=== PATIENT | female | born 1960 | race Caucasian/White ===

== ENCOUNTER 2019-07-08 07:04 | Day surgery (SDC) | payer BC ==
[2019-07-07 15:12] VITALS: BMI 38.9
[2019-07-08] MEDS ORDERED: PROPOFOL 200 MG/20 ML VIAL ONE (10:32)
--- NOTE | 2019-07-08 11:03 | OP ---
DATE OF PROCEDURE: 07/08/2019 PREPROCEDURE DIAGNOSES: 1. 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 2. Personal history of gastric polyps, both fundic gland polyps and adenomas in the past. 3. Personal history of colon polyps. POSTPROCEDURE DIAGNOSES: 1. Normal-appearing ampulla with no evidence of recurrent polyps or stenosis by side-viewing scope. 2. Gastric polyps in the fundus of the stomach, removed by cold snare polypectomy and submitted to Pathology. 3. Two colon polyps, one in the ascending and one in the descending, both removed by cold snare polypectomy, both less than 5 mm in size and submitted to Pathology. RECOMMENDATIONS: 1. Await histopathology. 2. Repeat EGD in 2 years and colonoscopy in 2 to 3 years. PROCEDURE IN DETAIL: The patient was informed of the risks, benefits, and possible complications of endoscopy including perforation, reaction to medication, and aspiration, informed consent was obtained and the patient was brought into the endoscopy suite, where she was sedated in gradual standard fashion. A bite block was placed inside the orifice. The endoscope was advanced through the esophagus, stomach, and second and third portions of the duodenum. The esophagus was normal. The stomach was notable for some polyps in the proximal stomach and cardia consistent with fundic glandular polyps. Larger of these was removed by snare polypectomy. There was no atypical appearing polyps. There was good distention and the stomach was viewed in forward and retroflexed views. The antrum was normal. The duodenum of the second and third portions were normal. No polyps seen. The scope was removed. The side-viewing duodenoscope was then advanced through the bite block and the esophagus was intubated. The endoscope was advanced to the second portion of the duodenum, where the ampulla was brought into view. There was no evidence of residual adenoma or stricture stenosis. There was clear bile emanating from the ampulla. The scope was removed. The patient was turned to the room and rectal exam was performed. The endoscope was advanced through the anal canal through the colon. The cecum was identified by ileocecal valve and appendiceal orifice. The scope was then slowly removed. There was a diminutive polyp in ascending colon about 5 mm in size and one in the descending, about 3 mm in size. These were removed by cold snare polypectomy and submitted to Pathology. Retroflexed views were normal. The prep was very good. The scope was removed. The patient was brought to recovery room in stable condition. Job ID: [id number]
== END 2019-07-08 10:45 | disposition home or self-care (01) ==
LOC: SDC 07:04
PROVIDERS: ATTEND Internal Medicine Gastroenterology
DX: Z12.11 Encounter for screening for malignant neoplasm of colon (principal); D12.2 Benign neoplasm of ascending colon; K31.7 Polyp of stomach and duodenum; I10 Essential (primary) hypertension; E11.9 Type 2 diabetes mellitus without complications; I25.10 Atherosclerotic heart disease of native coronary artery without angina pectoris; E78.5 Hyperlipidemia, unspecified; F41.9 Anxiety disorder, unspecified; J45.909 Unspecified asthma, uncomplicated; Z86.010 Personal history of colon polyps; Z86.018 Personal history of other benign neoplasm; Z91.013 Allergy to seafood
CPT/HCPCS: 36416; 88305; 88312; J2704

== ENCOUNTER 2021-09-30 09:54 | Outpatient (CLI) | payer BC ==
[2021-09-30 19:25] LABS: SARS-CoV-2 PCR by NAA Not Detected (NotDetected)
== END 2021-09-30 09:55 | disposition home or self-care (01) ==
LOC: LABBT 09:54
PROVIDERS: ATTEND Internal Medicine Gastroenterology
DX: Z01.812 Encounter for preprocedural laboratory examination (principal); D13.5 Benign neoplasm of extrahepatic bile ducts; K63.5 Polyp of colon; K64.4 Residual hemorrhoidal skin tags; I50.9 Heart failure, unspecified; Z11.59 Encounter for screening for other viral diseases; Z20.822 Contact with and (suspected) exposure to COVID-19
CPT/HCPCS: U0003; U0005